=== PATIENT | male | born 1970 | race Caucasian/White ===

== ENCOUNTER → 2021-11-04 | Outpatient (CLI) | payer OTHER, BC ==
[~2021-11-04] MED LIST: AMLODIPINE BESYL5 MG PO; ASPIRIN 325MG325 MG PO; CLEOCIN HCL300 MG PO; DOXYCYCLINE HYC50 M2 PO; DOXYCYCLINE MON50 M1 PO; FUROSEMIDE PO; IBUPROFEN800 MG PO; LASIX20 MG PO; NORCO 10-325 T1 EACH PO; NORVASC 5 MG TAB5 MG PO; VITAMIN C 500500 MG PO; VITAMIN D PO
== END ==
LOC: KOH-I 12:58
DX: M79.671 Pain in right foot (principal); M77.32 Calcaneal spur, left foot; M77.31 Calcaneal spur, right foot; M25.472 Effusion, left ankle; M25.471 Effusion, right ankle
CPT/HCPCS: 73630